=== PATIENT | male | born 1945 | race Hispanic/Latino ===

== ENCOUNTER → 2017-06-07 | Outpatient (CLI) | payer OTHER, MEDICARE ==
[~2017-06-07] MED LIST: CITA10TA7 PO; FINA5TAB41 PO; GABA-529 PO; INSU3INS3 SQ; LEVO5TAB13 PO; SACU1TAB7 PO; TERB250T51 PO; TYL3 PO; WARF4TAB72 PO
[2017-06-07 11:58] LABS: CREATININE 0.9 mg/dL (0.5-1.5)
== END | disposition home or self-care (01) ==
LOC: LAB 05-31 08:12
PROVIDERS: ATTEND Internal Medicine Cardiovascular Disease
DX: I73.9 Peripheral vascular disease, unspecified (principal)
CPT/HCPCS: 36415; 82565; 84520

== ENCOUNTER → 2017-06-12 | Outpatient (CLI) | payer OTHER, MEDICARE ==
[~2017-06-12] MED LIST changes: +IOPAMIDOL-370 100 ML VIAL IV ONE; +IOPAMIDOL-370 75 ML VIAL IV ONE; +ISOVUE-370 50ML VIAL IV ONE
== END ==
LOC: RAH 09:12
PROVIDERS: ATTEND Internal Medicine Cardiovascular Disease
DX: I74.5 Embolism and thrombosis of iliac artery (principal); I70.0 Atherosclerosis of aorta
CPT/HCPCS: 75635; Q9967 ×4

== ENCOUNTER → 2018-02-22 | Outpatient (CLI) | payer OTHER, MEDICARE ==
[~2018-02-22] MED LIST changes: -IOPAMIDOL-370 100 ML VIAL IV ONE; -IOPAMIDOL-370 75 ML VIAL IV ONE; -ISOVUE-370 50ML VIAL IV ONE
== END | disposition home or self-care (01) ==
LOC: OIH 10:53
PROVIDERS: ATTEND Internal Medicine
DX: M51.36 Other intervertebral disc degeneration, lumbar region (principal); M48.061 Spinal stenosis, lumbar region without neurogenic claudication; I70.0 Atherosclerosis of aorta
CPT/HCPCS: 72131

== ENCOUNTER 2018-06-08 07:02 | Day surgery (SDC) | payer OTHER, MEDICARE ==
[2018-06-06 13:06] VITALS: BP 178/78
[2018-06-06 13:20] LABS: HEMATOCRIT 47.9 % (42-54); LYMPHOCYTES % (AUTO) 16.2 % (21.0-51.0); MEAN CORPUSCULAR HEMOGLOBIN 29.6 pg (27.0-33.0); MEAN CORPUSCULAR HGB CONC 33.3 g/dL (32.0-36.0); NEUTROPHILS % (AUTO) 72.8 % (40.0-77.0); PLATELET COUNT (AUTO) 162 K/uL (130-400); RED BLOOD CELL COUNT(AUTO) 5.39 MIL/uL (4.50-6.20); RED CELL DISTRIBUTION WIDTH 14.3 % (11.0-15.5); WHITE BLOOD COUNT (AUTO) 6.4 K/uL (4.8-10.8)
[2018-06-06 13:22] LABS: APPEARANCE,URINE Clear (CLEAR); BILIRUBIN,URINE Negative (NEGATIVE); COLOR,URINE Yellow (YELLOW); GLUCOSE, URINE (UA) >=1000 mg/dL (NEGATIVE); KETONES,URINE Negative (NEGATIVE); LEUKOCYTE ESTERASE ,URINE Negative (NEGATIVE); NITRATE,URINE Negative (NEGATIVE); OCCULT BLOOD,URINE Negative (NEGATIVE); PROTEIN,URINE Negative (NEGATIVE)
[2018-06-06 13:28] LABS: CREATININE 0.9 mg/dL (0.5-1.5); POTASSIUM 4.4 mmol/L (3.5-5.1)
[2018-06-06 13:31] LABS: INR 2.28 (0.85-1.15); PARTIAL THROMBOPLASTIN TIME 38.3 SEC (26.3-35.5); PROTHROMBIN TIME 23.6 SEC (9.6-11.6)
[2018-06-06 13:36] LABS: BACTERIA,URINE Rare /HPF (None Seen); RBC,URINE None Seen /HPF (0-1); SQUAMOUS EPITHELIAL CELL,UR Rare /HPF (0-2); WBC,URINE 0-1 /HPF (0-1)
--- NOTE | 2018-06-07 10:25 | NUR ---
ABNORMAL LABS NOTIFIED BRIANNE WELDON PT'S PT 23.6, INR 2.28, PTT 38.3. LAST DOSE COUMADIN 06/05/18. ORDERS TO REDRAW PT/PTT UPON ARRIVAL DOS.
[~2018-06-08] VITALS: Ht 180.3 cm; Wt 86.2 kg
[2018-06-08] VITALS (19 sets, daily range): BP systolic 144–174; BP diastolic 50–98
[~2018-06-08 07:02] MED LIST changes: +ASPI-555 PO; +ATOR40TA71 PO; -CITA10TA7 PO; -FINA5TAB41 PO; -LEVO5TAB13 PO; +NEBI5TAB8 PO; -TERB250T51 PO; -TYL3 PO; +WARF-57 PO
[2018-06-08 07:50] LABS: INR 1.37 (0.85-1.15); PARTIAL THROMBOPLASTIN TIME 32.1 SEC (26.3-35.5); PROTHROMBIN TIME 14.3 SEC (9.6-11.6)
[2018-06-08] MEDS ORDERED: SODIUM CHLORIDE 0.9% 1000ML 1,000 ML IV ONE (09:36)
[2018-06-08] MEDS ORDERED: NITROGLYCERIN 5 MG/ML 10 ML VIAL IV ONE (10:45)
[2018-06-08] MEDS ORDERED: LIDOCAINE HCL 2% 20ML ONE (10:45)
[2018-06-08] MEDS ORDERED: HEPARIN SODIUM 1000UNIT/ML 10ML VIAL ONE (10:45)
[2018-06-08] MEDS ORDERED: IODIXANOL 320 MG/ML 100 ML VIAL ONE (10:48)
[2018-06-08] MEDS ORDERED: MIDAZOLAM HCL 1 MG/ML 2ML VIAL ONE (11:46)
[2018-06-08] MEDS ORDERED: FENTANYL CITRATE PF 50 MCG/1 ML 2ML VIAL ONE (11:47)
[2018-06-08] MEDS ORDERED: SODIUM CHLORIDE 0.9% 1000ML 1,000 ML IV SCH (12:46)
[2018-06-08] MEDS ORDERED: ASPIRIN 81MG TAB.CHEW ONE (12:51)
[2018-06-08] MEDS ORDERED: CLOPIDOGREL BISULFATE 300 MG TAB ONE (12:51)
[2018-06-08] MEDS ORDERED: NITROGLYCERIN 0.4 MG SL TAB SL PRN (13:00)
[2018-06-08] MEDS ORDERED: METOPROLOL TARTRATE 1 MG/ML 5ML VIAL IV PRN (13:00)
[2018-06-08] MEDS ORDERED: GLUCAGON 1MG KIT 1 MG ML IM PRN (13:00)
[2018-06-08] MEDS ORDERED: DEXTROSE 50%-WATER 50 ML DISP.SYRIN IV PRN (13:00)
[2018-06-08] MEDS ORDERED: HYDRALAZINE HCL 20 MG/ML VIAL IV PRN (13:00)
--- NOTE | 2018-06-08 15:30 | NUR ---
REPORTED TO BRIANNE BUSTOS THAT PATIENT NOT COOPERATING POST CATH PROCEDURE. PATIENT HAS A 6FR LINE TO THE LEFT GROIN. PATIENT STATES HE WANTS TO GET OUT OF BED AND GO TO THE RESTROOM. I INFORMED HIM THAT HE IS NOT ABLE TO GET UP YET. HE TRIED TO GET UP, BENDING LEFT KNEE WITH LINE IN PLACE, NO BLEEDING OR HEMATOMA TO SITE. I EXPLAINED THE COMPLICATIONS TO HIS ACTIONS. HE CALMED DOWN AND HE STARTED TO COOPERATE. I PROCEEDED WITH THE LINE PULL. NO COMPLICATIONS, NO HEMATOMA, NO BLEEDING, PULSES PRESENT.
[2018-06-08] MEDS ORDERED: ATROPINE SULFATE 0.1 MG/ML 10 ML SYG IVP ONE (15:37)
--- NOTE | 2018-06-08 16:15 | NUR ---
REPORT REPORT GIVEN TO ELIZABETH CAMPBELL. NO CONCERNS VOICED AT REPORT, PATIENT STABLE. NO BLEEDING, NO HEMATOMA TO LEFT GROIN.
[2018-06-08] MEDS ORDERED: INSULIN HUMULIN R 100 UNIT/ML 3ML SQ SCH (16:30)
[2018-06-09] MEDS ORDERED: CLOPIDOGREL BISULFATE 75 MG TAB PO SCH (09:00)
== END 2018-06-08 18:34 | disposition home or self-care (01) ==
LOC: DAH 07:02
PROVIDERS: ATTEND Internal Medicine Cardiovascular Disease
DX: I70.213 Atherosclerosis of native arteries of extremities with intermittent claudication, bilateral legs (principal); I82.90 Acute embolism and thrombosis of unspecified vein; I26.99 Other pulmonary embolism without acute cor pulmonale; M19.90 Unspecified osteoarthritis, unspecified site; Z98.890 Other specified postprocedural states; Z95.5 Presence of coronary angioplasty implant and graft; Z79.899 Other long term (current) drug therapy; Z79.01 Long term (current) use of anticoagulants; I25.10 Atherosclerotic heart disease of native coronary artery without angina pectoris; I48.2 Chronic atrial fibrillation; Z95.0 Presence of cardiac pacemaker; I42.9 Cardiomyopathy, unspecified; Z88.8 Allergy status to other drugs, medicaments and biological substances; Z82.49 Family history of ischemic heart disease and other diseases of the circulatory system; E11.51 Type 2 diabetes mellitus with diabetic peripheral angiopathy without gangrene; E78.5 Hyperlipidemia, unspecified; I10 Essential (primary) hypertension; G89.4 Chronic pain syndrome; E11.42 Type 2 diabetes mellitus with diabetic polyneuropathy; I71.4 Abdominal aortic aneurysm, without rupture
CPT/HCPCS: 36415 ×2; 37221; 71045; 75630; 80048; 81001; 82948 ×3; 85025; 85610 ×2; 85730 ×2; 93005; A4606; C1725 ×2; C1769 ×2; C1874; C1894 ×3; J0360; J0461; J1644 ×2; J2250; J3010; J3490 ×2; J7030; Q9967; 99156; 99157

== ENCOUNTER 2018-07-11 08:09 | Day surgery (SDC) | payer OTHER, MEDICARE ==
[2018-07-09 15:34] VITALS: BP 177/75
[2018-07-09 15:48] LABS: BASOPHILS % (AUTO) 1.1 % (0.0-5.0); EOSINOPHILS % (AUTO) 3.9 % (0.0-8.0); HEMATOCRIT 47.1 % (42-54); LYMPHOCYTES % (AUTO) 15.4 % (21.0-51.0); MEAN CORPUSCULAR HEMOGLOBIN 29.3 pg (27.0-33.0); MEAN CORPUSCULAR HGB CONC 32.6 g/dL (32.0-36.0); MEAN CORPUSCULAR VOLUME 89.7 fL (79-99); NEUTROPHILS % (AUTO) 73.6 % (40.0-77.0); PLATELET COUNT (AUTO) 152 K/uL (130-400); RED BLOOD CELL COUNT(AUTO) 5.25 MIL/uL (4.50-6.20); RED CELL DISTRIBUTION WIDTH 14.7 % (11.0-15.5); WHITE BLOOD COUNT (AUTO) 6.9 K/uL (4.8-10.8)
[2018-07-09 15:50] LABS: APPEARANCE,URINE Clear (CLEAR); BILIRUBIN,URINE Negative (NEGATIVE); COLOR,URINE Yellow (YELLOW); GLUCOSE, URINE (UA) >=1000 mg/dL (NEGATIVE); KETONES,URINE Negative (NEGATIVE); LEUKOCYTE ESTERASE ,URINE Negative (NEGATIVE); NITRATE,URINE Negative (NEGATIVE); OCCULT BLOOD,URINE Negative (NEGATIVE); PROTEIN,URINE Negative (NEGATIVE)
[2018-07-09 16:00] VITALS: BP 145/71
[2018-07-09 16:01] LABS: CREATININE 1.3 mg/dL (0.5-1.5); POTASSIUM 4.2 mmol/L (3.5-5.1)
[2018-07-09 16:04] LABS: INR 1.41 (0.85-1.15); PARTIAL THROMBOPLASTIN TIME 31.6 SEC (26.3-35.5); PROTHROMBIN TIME 14.7 SEC (9.6-11.6)
[2018-07-09 16:10] LABS: BACTERIA,URINE Rare /HPF (None Seen); RBC,URINE None Seen /HPF (0-1); SQUAMOUS EPITHELIAL CELL,UR None Seen /HPF (0-2); WBC,URINE 0-1 /HPF (0-1)
[2018-07-11] VITALS (10 sets, daily range): BP systolic 121–158; BP diastolic 54–90
[~2018-07-11] VITALS: Ht 180.3 cm; Wt 83.0 kg
[~2018-07-11 08:09] MED LIST changes: -ASPI-555 PO; +CLOP75TA14 PO
--- NOTE | 2018-07-11 08:33 | NUR ---
ABNORMAL LABS NOTIFIED BRIANNE HALL OF PT'S LABS- CREAT 1.3, INR 1.41, URINE GLUCOSE >1000. NO FURTHER ORDERS GIVEN.
--- NOTE | 2018-07-11 09:03 | NUR ---
NOTE PT STATED HE ACCIDENTALLY TOOK WARFARIN 5MG ON Monday07/09/18 AFTER PRE OP/PRE OP LABS WERE DRAWN. NOTIFIED BRIANNE HALL. PER AMIRAH, DRAW PT/INR NOW.
[2018-07-11] MEDS ORDERED: SODIUM CHLORIDE 0.9% 1000ML 1,000 ML IV ONE ×3 (09:29→11:06)
[2018-07-11 09:33] LABS: INR 1.41 (0.85-1.15); PARTIAL THROMBOPLASTIN TIME 31.9 SEC (26.3-35.5); PROTHROMBIN TIME 14.7 SEC (9.6-11.6)
[2018-07-11] MEDS ORDERED: WARF4TAB72 PO (09:35)
[2018-07-11] MEDS ORDERED: WARF-57 PO (09:35)
--- NOTE | 2018-07-11 10:23 | NUR ---
NOTE NOTIFIED BRIANNE SILVA OF PT'S REPEAT LABS TODAY- PT 14.7, INR 1.41. NO FURTHER ORDERS, WILL PROCEED WITH PLANNED PROCEDURE. ALSO INFORMED Mike MACARIO THAT PER PT, HE IS NOT SURE IF SOMEBODY CAN STAY WITH HIM OVERNIGHT, PROVIDER STAYS UNTIL 830 PM, HE WILL TRY TO MAKE ARRANGEMENTS.
[2018-07-11] MEDS ORDERED: SODIUM CHLORIDE 0.9% 500ML 500 ML IV SCH (10:30)
[2018-07-11] MEDS ORDERED: HEPARIN SODIUM 1000UNIT/ML 10ML VIAL ONE (12:44)
[2018-07-11] MEDS ORDERED: LIDOCAINE HCL 2% 20ML ONE (12:44)
[2018-07-11] MEDS ORDERED: IODIXANOL 320 MG/ML 100 ML VIAL ONE (12:44)
[2018-07-11] MEDS ORDERED: NITROGLYCERIN 5 MG/ML 10 ML VIAL IV ONE (12:44)
--- NOTE | 2018-07-11 12:45 | NUR ---
TO GEOTHERMAL POWERPLANT MECHANIC PT TRANSFERRED TO CATH VIA BED BY ELIZABETH LANDIN AND ELIZABETH PIERRE.
[2018-07-11] MEDS ORDERED: FENTANYL CITRATE PF 50 MCG/1 ML 2ML VIAL ONE (12:59)
[2018-07-11] MEDS ORDERED: MIDAZOLAM HCL 1 MG/ML 2ML VIAL ONE (12:59)
[2018-07-11] MEDS ORDERED: CLOPIDOGREL BISULFATE 300 MG TAB ONE (13:35)
[2018-07-11] MEDS ORDERED: SODIUM CHLORIDE 0.9% 1000ML 1,000 ML IV SCH (13:39)
[2018-07-11] MEDS ORDERED: DEXTROSE 50%-WATER 50 ML DISP.SYRIN IV PRN (13:45)
[2018-07-11] MEDS ORDERED: GLUCAGON 1MG KIT 1 MG ML IM PRN (13:45)
[2018-07-11] MEDS ORDERED: NITROGLYCERIN 0.4 MG SL TAB SL PRN (13:45)
[2018-07-11] MEDS ORDERED: GABAPENTIN 100 MG CAPSULE PO SCH (14:00)
--- NOTE | 2018-07-11 14:09 | NUR ---
RECEIVE PT RECEIVED FROM NETWORK TECHNOLOGY INSTRUCTOR VIA BED AWAKE ALERT ORIENTED X3. PT STABLE, NOT IN ANY APPARENT DISTRESS. CATH SITE TO LEFT POPLITEAL SOFT, GAUZE/OPSITE DRESSING DRY AND INTACT, NO OOZING NO HEMATOMA NOTED. PT INSTRUCTED TO KEEP LEFT LEG STRAIGHT AND TO REMAIN IN BED UNTIL BEDREST IS UP IN 3 HOURS, VERBALIZED UNDERSTANDING. POSITIONED SEMI SITTING ON BED. CALL [facility] WITHIN REACH.
--- NOTE | 2018-07-11 15:40 | NUR ---
NOTE RECEIVED REPORT FROM BRIAN GARCIA RN; PT WAS STABLE. NO CHANGES WITH CATH SITE. NO COMPLAINTS MADE. RECEIVED PT ON BED, NOT IN ANY APPARENT DISTRESS. CATH SITE TO LEFT POPLITEAL AREA REMAINS SOFT, DRESSING DRY AND INTACT, NO OOZING NO HEMATOMA NOTED. Addendum: 07/11/18 at 1835 by ALFONSO TOVAR RN RN ADDENDUM: TOLERATED DIET WELL.
--- NOTE | 2018-07-11 16:18 | NUR ---
LATE ENTRY: REPORT GIVEN TO BRIAN RN 1430, BRIAN TOOK OVER PT CARE AT THIS TIME.
[2018-07-11] MEDS ORDERED: INSULIN HUMULIN R 100 UNIT/ML 3ML SQ SCH (16:30)
--- NOTE | 2018-07-11 17:06 | NUR ---
CLARIFICATION CLARIFIED WITH BRIANNE HALL WHEN TO RESUME COUMADIN. PER AMIRAH, RESUME COUMADIN TODAY.
--- NOTE | 2018-07-11 17:35 | NUR ---
VOID PT ASSISTED TO BATHROOM, AMBULATED WITHOUT ANY PROBLEMS. VOIDED X1.
--- NOTE | 2018-07-11 18:30 | NUR ---
DISCHARGE PT DISCHARGED VIA WHEELCHAIR WITH DAUGHTER. PT STATES HE FEELS BETTER. CATH SITE REMAINS SOFT, DRESSING DRY AND INTACT, NO OOZING NO HEMATOMA NOTED. DISCHARGE INSTRUCTIONS GIVEN TO DAUGHTER, ALSO DEMONSTRATED TO DAUGHTER ON HOW TO MONITOR SITE FOR BLEEDING/HEMATOMA, TO APPLY DIRECT PRESSURE AND CALL 911. VERBALIZED UNDERSTANDING. INSTRUCTED PT/DAUGHTER, PT MAY RESUME COUMADIN TODAY, AND RESUME [facility]VIX TOMORROW. VERBALIZED UNDERSTANDING.
[2018-07-11] MEDS ORDERED: ATORVASTATIN CALCIUM 40 MG TABLET PO SCH (21:00)
[2018-07-12] MEDS ORDERED: INSULIN GLARGINE 100 UNITS/ML 10 ML VIAL SQ SCH (08:00)
[2018-07-12] MEDS ORDERED: CLOPIDOGREL BISULFATE 75 MG TAB PO SCH (09:00)
== END 2018-07-11 18:00 | disposition home or self-care (01) ==
LOC: DAH 08:09
PROVIDERS: ATTEND Internal Medicine Cardiovascular Disease
DX: I70.212 Atherosclerosis of native arteries of extremities with intermittent claudication, left leg (principal); E11.51 Type 2 diabetes mellitus with diabetic peripheral angiopathy without gangrene; I70.218 Atherosclerosis of native arteries of extremities with intermittent claudication, other extremity; Z79.01 Long term (current) use of anticoagulants; Z79.899 Other long term (current) drug therapy; Z98.890 Other specified postprocedural states; I48.2 Chronic atrial fibrillation; I42.9 Cardiomyopathy, unspecified; E78.5 Hyperlipidemia, unspecified; I10 Essential (primary) hypertension; G89.4 Chronic pain syndrome; Z82.49 Family history of ischemic heart disease and other diseases of the circulatory system; Z88.8 Allergy status to other drugs, medicaments and biological substances; I87.2 Venous insufficiency (chronic) (peripheral); Z95.810 Presence of automatic (implantable) cardiac defibrillator
CPT/HCPCS: 36415 ×2; 37226; 75710; 80048; 81001; 82948 ×2; 85025; 85610 ×2; 85730 ×2; 93005; A4606; C1725; C1760; C1769; C1874; C1894 ×2; J1644 ×2; J2250; J3010; J3490 ×2; J7030 ×3; Q9967; 99156; 99157

== ENCOUNTER → 2018-09-10 | Outpatient (CLI) | payer OTHER, MEDICARE | END | disposition home or self-care (01) | LOC: SHCH 09:31 | PROVIDERS: ATTEND Internal Medicine Cardiovascular Disease | DX: I35.8 Other nonrheumatic aortic valve disorders (principal); I11.9 Hypertensive heart disease without heart failure; I73.9 Peripheral vascular disease, unspecified; Z95.0 Presence of cardiac pacemaker | CPT/HCPCS: 93306; 93925 ==

== ENCOUNTER 2018-10-05 13:11 | Emergency (ER) | payer OTHER, MEDICARE ==
[2018-10-05] MEDS ORDERED: DEXAMETHASONE SOD PHOSPHATE 10MG/ML 1ML VIAL ONE (14:07)
[2018-10-05] MEDS ORDERED: KETOROLAC TROMETHAMINE 30MG/ML ONE (14:07)
[2018-10-05] MEDS ORDERED: IPRATROPIUM/ALBUTEROL SULFATE 3 ML SOLUTION IH ONE (14:10)
[2018-10-05 14:15] LABS: RAPID GROUP A STREP NEGATIVE (NEGATIVE)
== END 2018-10-05 14:51 | disposition home or self-care (01) ==
LOC: EDH 13:11
DX: J20.9 Acute bronchitis, unspecified (principal); E11.9 Type 2 diabetes mellitus without complications; Z88.8 Allergy status to other drugs, medicaments and biological substances
CPT/HCPCS: 87804 ×2; 87880; 94640; 96372 ×2; 99284; J1100; J1885

== ENCOUNTER → 2018-10-05 | Outpatient (CLI) | payer OTHER, MEDICARE | END | disposition home or self-care (01) | LOC: RAH 12:32 | PROVIDERS: ATTEND Internal Medicine | DX: Z13.6 Encounter for screening for cardiovascular disorders (principal) | CPT/HCPCS: 71045 ==

== ENCOUNTER → 2018-11-06 | Outpatient (CLI) | payer OTHER, MEDICARE | END | disposition home or self-care (01) | LOC: RAH 12:07 | PROVIDERS: ATTEND Internal Medicine | DX: J44.9 Chronic obstructive pulmonary disease, unspecified (principal); F17.200 Nicotine dependence, unspecified, uncomplicated | CPT/HCPCS: 36415; 82565; 84520 ==

== ENCOUNTER → 2018-12-12 | Outpatient (CLI) | payer OTHER, MEDICARE | END | disposition home or self-care (01) | LOC: SHCH 13:00 | PROVIDERS: ATTEND Internal Medicine Cardiovascular Disease | DX: I87.2 Venous insufficiency (chronic) (peripheral) (principal) | CPT/HCPCS: 93925 ==

== ENCOUNTER 2019-02-08 13:27 | Inpatient (IN) | payer OTHER, MEDICARE ==
[~2019-02-08] VITALS: Ht 180.3 cm; Wt 79.9 kg
[2019-02-08 14:21] LABS: BASOPHILS % (AUTO) 0.7 % (0.0-5.0); EOSINOPHILS % (AUTO) 2.1 % (0.0-8.0); HEMATOCRIT 43.9 % (42-54); LYMPHOCYTES % (AUTO) 10.8 % (21.0-51.0); MEAN CORPUSCULAR HEMOGLOBIN 30.9 pg (27.0-33.0); MEAN CORPUSCULAR HGB CONC 34.5 g/dL (32.0-36.0); MEAN CORPUSCULAR VOLUME 89.6 fL (79-99); MONOCYTES % (AUTO) 6.1 % (3.0-13.0); NEUTROPHILS % (AUTO) 80.3 % (40.0-77.0); PLATELET COUNT (AUTO) 259 K/uL (130-400); RED BLOOD CELL COUNT(AUTO) 4.91 MIL/uL (4.50-6.20); RED CELL DISTRIBUTION WIDTH 14.3 % (11.0-15.5); WHITE BLOOD COUNT (AUTO) 10.2 K/uL (4.8-10.8)
[2019-02-08 14:31] LABS: CREATININE 1.2 mg/dL (0.5-1.5); POTASSIUM 5.3 mmol/L (3.5-5.1)
[2019-02-08 14:36] LABS: ALBUMIN 3.4 g/dL (3.5-5.0); BILIRUBIN,DIRECT 0.1 mg/dL (0.0-0.3); BILIRUBIN,TOTAL 0.3 mg/dL (0.2-1.0); TOTAL PROTEIN, SERUM 6.9 g/dL (6.0-8.3)
[2019-02-08] MEDS ORDERED: ACETAMINOPHEN-CODEINE 300/30MG TAB PO PRN ×2 (17:15)
[2019-02-08] MEDS ORDERED: ACETAMINOPHEN 325 MG TAB PO PRN ×2 (17:15)
[2019-02-08] MEDS ORDERED: ONDANSETRON HCL 4 MG/2 ML VIAL IV PRN (17:15)
[2019-02-08] MEDS ORDERED: MORPHINE SULFATE 4 MG/1ML SYG IV PRN (17:15)
[2019-02-08] MEDS ORDERED: HYDRALAZINE HCL 20 MG/ML VIAL IV PRN (17:15)
[2019-02-08] MEDS ORDERED: VANCOMYCIN 1GM+NS 250ML 250 ML IV SCH (17:15)
[2019-02-08] MEDS ORDERED: VANCOMYCIN PROTOCOL PER PHARMACY IV PRN (17:15)
[2019-02-08] MEDS ORDERED: COMPOUND IV REFRIGERATED 1 EACH IVSOLN MISC PRN (18:00)
[2019-02-08] MEDS ORDERED: VANCOMYCIN PROTOCOL PER PHARMACY IV SCH (18:00)
[2019-02-08] MEDS ORDERED: ACETAMINOPHEN-CODEINE 300/30MG TAB ONE (18:42)
[2019-02-08] MEDS ORDERED: SODIUM CHLORIDE 0.9% 1000ML 1,000 ML IV ONE (18:42)
[2019-02-08] MEDS ORDERED: MEROPENEM 500 MG VIAL ONE (19:21)
[2019-02-08] MEDS ORDERED: SODIUM CHLORIDE 0.9% 50 ML IV ONE (19:21)
[2019-02-08 19:38] LABS: HEMOGLOBIN A1C 9.5 % (4.0-6.0)
[2019-02-08 20:01] LABS: PARTIAL THROMBOPLASTIN TIME 46.7 SEC (26.3-35.5)
[2019-02-08 20:06] LABS: PROTHROMBIN TIME 57.5 SEC (9.6-11.6)
[2019-02-08 20:07] LABS: INR 5.86 (0.85-1.15)
[2019-02-08 21:00] VITALS: BP 151/74
--- NOTE | 2019-02-08 21:30 | NUR ---
Nursing Note Pt informed about SCD's, to be on bedrest and informed about medication. Pt is refusing to be on bedrest, to use a urinal or bedside commode.
[2019-02-08] MEDS: SODIUM CHLORIDE 0.9% 1000ML 1,000 ML IV SCH (21:38)
[2019-02-08] MEDS: VANCOMYCIN 1.25 GM in SODIUM CHLORIDE 0.9% 250 ML IV SCH ×2 (21:38→22:00)
[2019-02-08] MEDS: MEROPENEM 500 MG VIAL IV SCH (21:38)
[2019-02-08] MEDS: FAMOTIDINE/PF 20 MG/2 ML VIAL IV SCH (21:38)
--- NOTE | 2019-02-08 22:00 | NUR ---
Nursing Note Spoke with JAILENE Parker and informed him of the pt's Pt and INR. Orders were given to hold blood thinners at this time, put pt on SCD's and telemetry and order more labs in the AM to recheck.
[2019-02-08] MEDS: INSULIN GLARGINE 100 UNITS/ML 10 ML VIAL SQ SCH (22:01)
--- NOTE | 2019-02-08 22:16 | NUR ---
Nursing Note Dr. Jones stated he would see the pt tomorrow.
[2019-02-08 23:38] VITALS: BP 151/72
[2019-02-09] MEDS: MEROPENEM 500 MG VIAL IV SCH ×3 (00:58→17:15)
[2019-02-09] MEDS ORDERED: PHARMACY COMMUNICATION MISC SCH (02:15)
[2019-02-09 04:00] VITALS: BP 150/80
[2019-02-09] MEDS: SODIUM CHLORIDE 0.9% 1000ML 1,000 ML IV SCH ×3 (05:27→23:40)
[2019-02-09 05:45] LABS: PARTIAL THROMBOPLASTIN TIME 46.7 SEC (26.3-35.5)
[2019-02-09] MEDS: INSULIN LISPRO 100 UNIT/ML 3ML SQ SCH ×3 (05:46→18:18)
[2019-02-09 05:47] LABS: CHOLESTEROL 97 mg/dL (<200); HDL CHOLESTEROL 26 mg/dL (29-71); LDL DIRECT 60 mg/dL (0-99); TRIGLYCERIDES 74 mg/dL (30-200)
[2019-02-09 06:01] LABS: INR 4.66 (0.85-1.15); PROTHROMBIN TIME 46.1 SEC (9.6-11.6)
--- NOTE | 2019-02-09 06:21 | NUR ---
Nursing Note Paged about PT/INR results, waiting for call back.
[2019-02-09 08:00] VITALS: BP 154/82
--- NOTE | 2019-02-09 08:38 | NUR ---
PAGED CARDIOLOGY CONSULT PAGED CHINESE TEACHER STRING LASTER, DR. Caesar TOVAR REGARDING CONSULT.
[2019-02-09] MEDS: ENOXAPARIN SODIUM 40 MG/0.4 ML SYRINGE SQ SCH (09:00)
[2019-02-09 11:00] VITALS: BP 139/70
[2019-02-09] MEDS: VANCOMYCIN 750MG + NS 250 ML IV SCH ×4 (11:16→20:04)
[2019-02-09] MEDS: FAMOTIDINE/PF 20 MG/2 ML VIAL IV SCH ×2 (11:35→20:02)
[2019-02-09] MEDS ORDERED: DIPH,PERTUSS(ACELL),TET VAC/PF 0.5 ML VIAL IM SCH (12:15)
[2019-02-09 12:35] LABS: EOSINOPHILS % (AUTO) 5.5 % (0.0-8.0); HEMATOCRIT 45.8 % (42-54); LYMPHOCYTES % (AUTO) 19.1 % (21.0-51.0); MEAN CORPUSCULAR HGB CONC 33.4 g/dL (32.0-36.0); MEAN CORPUSCULAR VOLUME 89.7 fL (79-99); MONOCYTES % (AUTO) 7.9 % (3.0-13.0); NEUTROPHILS % (AUTO) 66.5 % (40.0-77.0); NUCLEATED RED BLOOD CELLS 0.1 % (0.0-0.19); PLATELET COUNT (AUTO) 222 K/uL (130-400); RED CELL DISTRIBUTION WIDTH 14.1 % (11.0-15.5); WHITE BLOOD COUNT (AUTO) 7.5 K/uL (4.8-10.8)
[2019-02-09] MEDS ORDERED: TRAM50TA4 PO (12:35)
[2019-02-09] MEDS ORDERED: CLOP75TA14 PO (12:35)
[2019-02-09] MEDS ORDERED: WARF-57 PO (12:35)
[2019-02-09] MEDS ORDERED: NEBI10TA PO (12:35)
[2019-02-09] MEDS ORDERED: LEVO25TA54 PO (12:35)
[2019-02-09] MEDS ORDERED: ATOR40TA69 PO (12:35)
[2019-02-09] MEDS ORDERED: GLIP10TA9 PO (12:35)
[2019-02-09] MEDS ORDERED: SACU1TAB7 PO (12:35)
[2019-02-09] MEDS ORDERED: INSU3INS3 SQ (12:35)
[2019-02-09] MEDS: TRAMADOL HCL 50 MG TABLET PO PRN ×2 (15:09→23:47)
[2019-02-09 16:00] VITALS: BP 156/78
--- NOTE | 2019-02-09 17:04 | NUR ---
INITIAL: Met with pt this afternoon to discuss dcp. Pt mentions that he lives alone. Prior to admission was using either a rollator or crutches for ambulation. Requires assistance w ADLs. Has provider services 8a-2:30pm. Pt mentions that his provider transports him where needed. Per pt he feels safe and comfortable to return home at ar. CM to continue to follow and wait for Md recommendations. Addendum: 02/09/19 at 1706 by GISSELLE AGUAYO Amended: Links added.
[2019-02-09 20:00] VITALS: BP 151/75
--- NOTE | 2019-02-09 20:00 | NUR ---
Nursing Note Explained to pt about medications and talked to pt about the plan's the doctor talked with him about. Pt is still confused as to why he has to stay for the procedures scheduled for Monday. Pt also stated "the doctors don't know what they are doing." I talked to pt some more about his medications and why they want him to stay.
[2019-02-09] MEDS: ATORVASTATIN CALCIUM 40 MG TABLET PO SCH (20:03)
[2019-02-09] MEDS: INSULIN GLARGINE 100 UNITS/ML 10 ML VIAL SQ SCH (20:46)
[2019-02-10] VITALS (8 sets, daily range): BP systolic 139–163; BP diastolic 71–90
[2019-02-10] MEDS: MEROPENEM 500 MG VIAL IV SCH ×3 (00:25→17:35)
[2019-02-10 06:30] LABS: BASOPHILS % (AUTO) 0.8 % (0.0-5.0); EOSINOPHILS % (AUTO) 4.3 % (0.0-8.0); HEMATOCRIT 40.5 % (42-54); LYMPHOCYTES % (AUTO) 19.4 % (21.0-51.0); MEAN CORPUSCULAR HEMOGLOBIN 29.8 pg (27.0-33.0); MEAN CORPUSCULAR HGB CONC 33.5 g/dL (32.0-36.0); MEAN CORPUSCULAR VOLUME 89.2 fL (79-99); MONOCYTES % (AUTO) 8.1 % (3.0-13.0); NEUTROPHILS % (AUTO) 67.4 % (40.0-77.0); PLATELET COUNT (AUTO) 207 K/uL (130-400); RED BLOOD CELL COUNT(AUTO) 4.54 MIL/uL (4.50-6.20); RED CELL DISTRIBUTION WIDTH 13.5 % (11.0-15.5); WHITE BLOOD COUNT (AUTO) 7.6 K/uL (4.8-10.8)
[2019-02-10] MEDS: LEVOTHYROXINE 25 MCG TABLET PO SCH (06:31)
[2019-02-10 06:38] LABS: INR 2.48 (0.85-1.15); PROTHROMBIN TIME 25.1 SEC (9.6-11.6)
[2019-02-10] MEDS: INSULIN GLARGINE 100 UNITS/ML 10 ML VIAL SQ SCH ×2 (06:40→21:00)
[2019-02-10] MEDS: INSULIN LISPRO 100 UNIT/ML 3ML SQ SCH ×3 (06:40→16:06)
--- NOTE | 2019-02-10 07:20 | NUR ---
Nursing Note Informed Day Nurse Sherri JOHNSON to have pt sign consent for procedure on 02/11/19 while doctors are making their rounds because pt has lots of concerns and questions.
[2019-02-10 08:55] LABS: CREATININE 0.9 mg/dL (0.5-1.5)
[2019-02-10] MEDS: ENOXAPARIN SODIUM 40 MG/0.4 ML SYRINGE SQ SCH (09:00)
[2019-02-10] MEDS: ***HM***(Sacubitril/Valsartan (Entresto 49 mg-51 mg Tablet) 1 EACH PO SCH (09:00)
[2019-02-10] MEDS: GLIPIZIDE XL 10MG TAB PO SCH (09:16)
[2019-02-10] MEDS: VANCOMYCIN 750MG + NS 250 ML IV SCH ×4 (09:16→20:46)
[2019-02-10 09:17] LABS: POTASSIUM 3.9 mmol/L (3.5-5.1)
[2019-02-10] MEDS: FAMOTIDINE/PF 20 MG/2 ML VIAL IV SCH ×2 (09:17→20:46)
[2019-02-10] MEDS: NEBIVOLOL HCL 5 MG TABLET PO SCH (09:17)
[2019-02-10] MEDS ORDERED: REGADENOSON 0.4 MG/5 ML PF SYG IVP SCH (12:00)
--- NOTE | 2019-02-10 15:45 | NUR ---
DR. TOVAR IN TO SEE PT. ORDERS ENTERED. IF INR >THAN 1.7 DO LEXISCAN 1ST AND ABD ANGIOGRAM ON MONDAY.SEE ORDERS FOR MORE CLARIFICATION.
--- NOTE | 2019-02-10 18:30 | NUR ---
X-RAYS OF HIPS, FEMUR RT. FOOT, RT.KNEE AND ANKLE DONE NOW.
[2019-02-10] MEDS: SODIUM CHLORIDE 0.9% 1000ML 1,000 ML IV SCH (20:42)
[2019-02-10] MEDS: ATORVASTATIN CALCIUM 40 MG TABLET PO SCH (20:46)
--- NOTE | 2019-02-10 21:08 | NUR ---
Nursing Note Spoke with pt for about 40 minutes, talked to pt about each of his doctors and what they are consulted for, talked to the pt about his medications and what they are for and why he is getting them, also spoke with the pt about his plan of care for the procedures coming up the abdominal aortogram and the Lexiscan, reinforced what each procedure is for and the doctors plans if his INR is greater than 1.7 and spoke to pt about his toe necrosis. Pt stated he is still confused and he doesn't know what is going on, he also stated he doesn't know why he is getting the medications and that he thinks we are experimenting on him. Pt is refusing to wear the SCD's at this time, pt refuses bedrest and continues to get up on his own without the crutches, informed the pt to call for help. Pt is also refusing insulin for his blood sugar. At this time unable to get consent signed because pt has many questions and concerns for the doctor. Pt stated "I don't trust the doctor's down here they are all friends and know each other"
[2019-02-11] VITALS (16 sets, daily range): BP systolic 114–169; BP diastolic 47–89
[2019-02-11] MEDS: MEROPENEM 500 MG VIAL IV SCH ×3 (00:54→19:33)
[2019-02-11 04:39] LABS: BASOPHILS % (AUTO) 1.1 % (0.0-5.0); EOSINOPHILS % (AUTO) 4.8 % (0.0-8.0); HEMATOCRIT 39.2 % (42-54); LYMPHOCYTES % (AUTO) 14.6 % (21.0-51.0); MEAN CORPUSCULAR HEMOGLOBIN 30.4 pg (27.0-33.0); MEAN CORPUSCULAR HGB CONC 34.7 g/dL (32.0-36.0); MEAN CORPUSCULAR VOLUME 87.6 fL (79-99); MONOCYTES % (AUTO) 6.8 % (3.0-13.0); NEUTROPHILS % (AUTO) 72.7 % (40.0-77.0); PLATELET COUNT (AUTO) 241 K/uL (130-400); RED BLOOD CELL COUNT(AUTO) 4.48 MIL/uL (4.50-6.20); RED CELL DISTRIBUTION WIDTH 13.9 % (11.0-15.5); WHITE BLOOD COUNT (AUTO) 7.9 K/uL (4.8-10.8)
[2019-02-11] MEDS: SODIUM CHLORIDE 0.9% 1000ML 1,000 ML IV SCH ×2 (04:47→15:31)
[2019-02-11 05:00] LABS: POTASSIUM 4.1 mmol/L (3.5-5.1)
[2019-02-11] MEDS: LEVOTHYROXINE 25 MCG TABLET PO SCH (05:34)
[2019-02-11] MEDS: INSULIN LISPRO 100 UNIT/ML 3ML SQ SCH ×3 (05:34→17:00)
[2019-02-11 05:55] LABS: INR 1.61 (0.85-1.15); PROTHROMBIN TIME 16.6 SEC (9.6-11.6)
[2019-02-11] MEDS: INSULIN GLARGINE 100 UNITS/ML 10 ML VIAL SQ SCH (06:23)
[2019-02-11] MEDS: GLIPIZIDE XL 10MG TAB PO SCH (08:00)
[2019-02-11] MEDS: ENOXAPARIN SODIUM 40 MG/0.4 ML SYRINGE SQ SCH (09:00)
--- NOTE | 2019-02-11 10:00 | NUR ---
CONSENT RECEIVED PT EDUCATED ON PROCEDURE (ANGIOGRAM) BEING DONE TODAY 02/11. PT VERBALIZED UNDERSTANDING AND WAS ABLE TO DESCRIBE PROCEDURE VIA RETURN DEMONSTRATION. CONSENT SIGNED AND IN CHART READY FOR PROCEDURE
[2019-02-11] MEDS: NEBIVOLOL HCL 5 MG TABLET PO SCH (10:53)
[2019-02-11] MEDS: FAMOTIDINE/PF 20 MG/2 ML VIAL IV SCH ×2 (10:54→21:27)
[2019-02-11] MEDS: ***HM***(Sacubitril/Valsartan (Entresto 49 mg-51 mg Tablet) 1 EACH PO SCH (10:55)
[2019-02-11] MEDS: VANCOMYCIN 750MG + NS 250 ML IV SCH ×6 (10:55→21:28)
--- NOTE | 2019-02-11 13:55 | NUR ---
[facility] consult Patient has already been evaluated by Dr. Bryant and wound care orders are in place. No further [facility] recommendations required at this time.
--- NOTE | 2019-02-11 14:57 | NUR ---
CM Note: pt declined placement CM met with pt as per request. Discussed possible short term placement rehab. At this time pt declined. Prefers to go back home once stable, stated provider or his son will come pick him up once ready to DC. Primary nurse aware. CM to cont to follow up.
[2019-02-11] MEDS ORDERED: IODIXANOL 320 MG/ML 100 ML VIAL ONE (15:45)
[2019-02-11] MEDS ORDERED: LIDOCAINE HCL 1% 20 ML VIAL ONE (15:45)
[2019-02-11] MEDS ORDERED: HEPARIN SODIUM 1000UNIT/ML 10ML VIAL ONE (15:45)
[2019-02-11] MEDS ORDERED: NITROGLYCERIN 5 MG/ML 10 ML VIAL IV ONE (15:45)
[2019-02-11] MEDS ORDERED: MIDAZOLAM HCL 1 MG/ML 2ML VIAL ONE (15:46)
[2019-02-11] MEDS ORDERED: FENTANYL CITRATE PF 50 MCG/1 ML 2ML VIAL ONE (15:46)
[2019-02-11] MEDS ORDERED: HYDRALAZINE HCL 20 MG/ML VIAL ONE (16:44)
[2019-02-11] MEDS: ATORVASTATIN CALCIUM 40 MG TABLET PO SCH (21:28)
[2019-02-12] VITALS (7 sets, daily range): BP systolic 135–155; BP diastolic 66–84
[2019-02-12] MEDS: SODIUM CHLORIDE 0.9% 1000ML 1,000 ML IV SCH ×2 (00:26→12:00)
[2019-02-12] MEDS: MEROPENEM 500 MG VIAL IV SCH ×3 (01:27→16:40)
[2019-02-12 05:00] LABS: HEMATOCRIT 40.6 % (42-54); MEAN CORPUSCULAR HEMOGLOBIN 30.1 pg (27.0-33.0); MEAN CORPUSCULAR HGB CONC 33.8 g/dL (32.0-36.0); MEAN CORPUSCULAR VOLUME 89.2 fL (79-99); NUCLEATED RED BLOOD CELLS 0.1 % (0.0-0.19); PLATELET COUNT (AUTO) 227 K/uL (130-400); RED BLOOD CELL COUNT(AUTO) 4.55 MIL/uL (4.50-6.20); RED CELL DISTRIBUTION WIDTH 13.9 % (11.0-15.5); WHITE BLOOD COUNT (AUTO) 8.3 K/uL (4.8-10.8)
[2019-02-12 05:13] LABS: POTASSIUM 3.8 mmol/L (3.5-5.1)
[2019-02-12] MEDS: LEVOTHYROXINE 25 MCG TABLET PO SCH (05:35)
[2019-02-12] MEDS: VANCOMYCIN 750MG + NS 250 ML IV SCH ×5 (05:35→21:50)
[2019-02-12] MEDS: INSULIN GLARGINE 100 UNITS/ML 10 ML VIAL SQ SCH (07:30)
[2019-02-12] MEDS: INSULIN LISPRO 100 UNIT/ML 3ML SQ SCH ×3 (07:30→16:44)
[2019-02-12] MEDS ORDERED: REGADENOSON 0.4 MG/5 ML PF SYG IVP SCH (08:15)
[2019-02-12] MEDS: ***HM***(Sacubitril/Valsartan (Entresto 49 mg-51 mg Tablet) 1 EACH PO SCH (09:00)
[2019-02-12] MEDS: ASPIRIN 81MG TAB.CHEW PO SCH (11:46)
[2019-02-12] MEDS: GLIPIZIDE XL 10MG TAB PO SCH (11:47)
[2019-02-12] MEDS: FAMOTIDINE/PF 20 MG/2 ML VIAL IV SCH ×2 (11:47→21:50)
[2019-02-12] MEDS: NEBIVOLOL HCL 5 MG TABLET PO SCH (11:49)
[2019-02-12] MEDS: ENOXAPARIN SODIUM 40 MG/0.4 ML SYRINGE SQ SCH (12:17)
--- NOTE | 2019-02-12 16:06 | NUR ---
DRESSING CHANGED TO RIGHT FOOT WITH BETADINE CAST. WRAPPED WITH 4X4 AND KERLIX. SECURED WITH TAPE. PATIENT TOLERATED PROCEDURE WELL.
[2019-02-12] MEDS: TRAMADOL HCL 50 MG TABLET PO PRN (16:40)
[2019-02-12] MEDS: ATORVASTATIN CALCIUM 40 MG TABLET PO SCH (21:50)
[2019-02-13] VITALS (7 sets, daily range): BP systolic 133–154; BP diastolic 63–88
[2019-02-13] MEDS: MEROPENEM 500 MG VIAL IV SCH ×3 (02:02→17:44)
[2019-02-13] MEDS: SODIUM CHLORIDE 0.9% 1000ML 1,000 ML IV SCH ×2 (02:04→21:34)
[2019-02-13] MEDS: TRAMADOL HCL 50 MG TABLET PO PRN ×2 (02:27→10:37)
[2019-02-13] MEDS: VANCOMYCIN 750MG + NS 250 ML IV SCH ×2 (05:18→14:47)
[2019-02-13] MEDS: LEVOTHYROXINE 25 MCG TABLET PO SCH (05:19)
[2019-02-13] MEDS: INSULIN LISPRO 100 UNIT/ML 3ML SQ SCH ×3 (07:30→17:49)
[2019-02-13 08:59] LABS: INR 1.22 (0.85-1.15); PARTIAL THROMBOPLASTIN TIME 30.3 SEC (26.3-35.5); PROTHROMBIN TIME 12.7 SEC (9.6-11.6)
[2019-02-13] MEDS: ***HM***(Sacubitril/Valsartan (Entresto 49 mg-51 mg Tablet) 1 EACH PO SCH (09:00)
[2019-02-13] MEDS: FAMOTIDINE/PF 20 MG/2 ML VIAL IV SCH ×2 (10:36→21:34)
[2019-02-13] MEDS: NEBIVOLOL HCL 5 MG TABLET PO SCH (10:36)
[2019-02-13] MEDS: ENOXAPARIN SODIUM 40 MG/0.4 ML SYRINGE SQ SCH (10:36)
[2019-02-13] MEDS: ASPIRIN 81MG TAB.CHEW PO SCH (10:37)
[2019-02-13] MEDS: GLIPIZIDE XL 10MG TAB PO SCH (11:14)
[2019-02-13] MEDS: INSULIN GLARGINE 100 UNITS/ML 10 ML VIAL SQ SCH (11:16)
[2019-02-13] MEDS: ATORVASTATIN CALCIUM 40 MG TABLET PO SCH (21:34)
[2019-02-14] VITALS (12 sets, daily range): BP systolic 133–177; BP diastolic 61–96
[2019-02-14] MEDS: MEROPENEM 500 MG VIAL IV SCH ×3 (00:46→17:26)
[2019-02-14 06:00] LABS: EOSINOPHILS % (AUTO) 5.1 % (0.0-8.0); HEMATOCRIT 41.4 % (42-54); LYMPHOCYTES % (AUTO) 14.1 % (21.0-51.0); MEAN CORPUSCULAR HEMOGLOBIN 30.1 pg (27.0-33.0); MEAN CORPUSCULAR HGB CONC 33.8 g/dL (32.0-36.0); MEAN CORPUSCULAR VOLUME 88.9 fL (79-99); MONOCYTES % (AUTO) 7.6 % (3.0-13.0); NEUTROPHILS % (AUTO) 72.2 % (40.0-77.0); PLATELET COUNT (AUTO) 221 K/uL (130-400); RED BLOOD CELL COUNT(AUTO) 4.65 MIL/uL (4.50-6.20); RED CELL DISTRIBUTION WIDTH 13.8 % (11.0-15.5); WHITE BLOOD COUNT (AUTO) 7.9 K/uL (4.8-10.8)
[2019-02-14] MEDS: INSULIN LISPRO 100 UNIT/ML 3ML SQ SCH ×3 (06:17→17:34)
[2019-02-14] MEDS: LEVOTHYROXINE 25 MCG TABLET PO SCH ×2 (06:18→06:30)
[2019-02-14] MEDS: INSULIN GLARGINE 100 UNITS/ML 10 ML VIAL SQ SCH (06:18)
[2019-02-14 06:28] LABS: ALANINE AMINOTRANSFERASE 23 U/L (12-78); ALBUMIN 2.7 g/dL (3.5-5.0); ASPARTATE AMINOTRANSFERASE 16 U/L (10-37); CARBON DIOXIDE 31 mmol/L (21-32); CHLORIDE 104 mmol/L (101-111); CREATINE KINASE, TOTAL 52 U/L (21-232); GLOMERULAR FILTR. RATE CALC 78 mL/min (>60); GLUCOSE,RANDOM 96 mg/dL (70-105); MYOGLOBIN 46 ng/mL (10-92); POTASSIUM 3.4 mmol/L (3.5-5.1); SODIUM SERUM 139 mmol/L (136-145); TOTAL PROTEIN, SERUM 6.2 g/dL (6.0-8.3); TROPONIN I < 0.04 ng/mL (0.00-0.06); UREA NITROGEN, BLOOD 9 mg/dL (7-18)
--- NOTE | 2019-02-14 07:20 | NUR ---
Receiving report on assignments from nightshift nurse Mike Allen RN. robotic weld technician taking patient for Lt Heart Cath.
[2019-02-14] MEDS ORDERED: IOHEXOL-350 50ML VIAL IV ONE (07:21)
[2019-02-14] MEDS ORDERED: LIDOCAINE HCL 2% 20ML ONE (07:22)
[2019-02-14] MEDS ORDERED: IOHEXOL-350 75 ML VIAL IV ONE (07:22)
[2019-02-14] MEDS ORDERED: BIVALIRUDIN 250 MG/VIAL IV ONE (07:22)
[2019-02-14] MEDS ORDERED: NITROGLYCERIN 5 MG/ML 10 ML VIAL IV ONE (07:23)
[2019-02-14] MEDS: GLIPIZIDE XL 10MG TAB PO SCH (08:00)
[2019-02-14] MEDS ORDERED: FENTANYL CITRATE PF 50 MCG/1 ML 2ML VIAL ONE (08:03)
[2019-02-14] MEDS ORDERED: MIDAZOLAM HCL 1 MG/ML 2ML VIAL ONE (08:03)
[2019-02-14] MEDS: ASPIRIN 81MG TAB.CHEW PO SCH (09:00)
[2019-02-14] MEDS: ***HM***(Sacubitril/Valsartan (Entresto 49 mg-51 mg Tablet) 1 EACH PO SCH (09:00)
[2019-02-14] MEDS: ENOXAPARIN SODIUM 40 MG/0.4 ML SYRINGE SQ SCH (09:00)
[2019-02-14] MEDS ORDERED: ASPIRIN 81MG TAB.CHEW ONE (09:46)
[2019-02-14] MEDS ORDERED: CLOPIDOGREL BISULFATE 300 MG TAB ONE (09:46)
[2019-02-14] MEDS ORDERED: SODIUM CHLORIDE 0.9% 1000ML 1,000 ML IV SCH (09:52)
[2019-02-14] MEDS ORDERED: HYDRALAZINE HCL 20 MG/ML VIAL IV PRN (10:00)
--- NOTE | 2019-02-14 10:50 | NUR ---
Provided report to Kunal Calloway RN with [facility] for transfer post Lt Heart Cath.
[2019-02-14] MEDS: FAMOTIDINE/PF 20 MG/2 ML VIAL IV SCH ×2 (11:29→20:30)
[2019-02-14] MEDS: VANCOMYCIN 1.25 GM in SODIUM CHLORIDE 0.9% 250 ML IV SCH ×2 (11:37→20:31)
--- NOTE | 2019-02-14 13:28 | NUR ---
RD NOTIFICATION DX: RIGHT FIRST TOE NECROSIS, GANGRENE. DIET: 75GMCCD/ NPO FOR NOW DUE TO PROCEDURE. LBM: 02/13. NO DIFFICULTY CHEWING OR SWALLOWING. NO EMESIS OR DIARRHEA. NO EDEMA NOTED. PT CLAIMS TO HAVE GOOD APPETITE. PROVIDER COOKS FOR PT AT HOME AND EATS 3 MEALS DAILY. PT IS UNSURE IF PROVIDER KNOWS TO COOK FOR A DIABETIC. RD PROVIDED DM DIET AND NUTRITION EDUCATION. RD ENCOURAGED TO SHARE DM DIET INFORMATION WITH HIS PROVIDER. PT ASKED QUESTIONS, RD ANSWERED AND PT VERBALIZED UNDERSTANDING. EDUCATION MATERIALS PROVIDED. RD RECOMMENDS CONTINUE CURRENT DIET. RD PROVIDED DM2 DIET AND NUTRITION EDUCATION. PT STATED HE IS HUNGRY AND WOULD LIKE HIS TRAY. RECOMMEND ORDER 75GMCCD TRAY POST PROCEDURE. RECOMMEND TARAH BID TO AID WOUND HEALING. RD WILL CONTINUE TO MONITOR AND FOLLOW UP NEEDED. Addendum: 02/14/19 at [address] Amended: Links added.
--- NOTE | 2019-02-14 13:30 | NUR ---
DIET EDUCATION PROVIDER COOKS FOR PT AT HOME AND EATS 3 MEALS DAILY. PT IS UNSURE IF PROVIDER KNOWS TO COOK FOR A DIABETIC. NAVEED PROVIDED DM DIET AND NUTRITION EDUCATION. RD ENCOURAGED TO SHARE DM DIET INFORMATION WITH HIS PROVIDER. PT ASKED QUESTIONS, RD ANSWERED AND PT VERBALIZED UNDERSTANDING. EDUCATION MATERIALS PROVIDED. Addendum: 02/14/19 at [address] Amended: Links added.
[2019-02-14] MEDS: SODIUM CHLORIDE 0.9% 1000ML 1,000 ML IV SCH (16:21)
[2019-02-14] MEDS: NEBIVOLOL HCL 5 MG TABLET PO SCH (17:25)
[2019-02-14] MEDS: ATORVASTATIN CALCIUM 40 MG TABLET PO SCH (20:30)
[2019-02-15] MEDS: MEROPENEM 500 MG VIAL IV SCH ×3 (00:28→16:54)
[2019-02-15 03:10] VITALS: BP 159/82
[2019-02-15] MEDS: LEVOTHYROXINE 25 MCG TABLET PO SCH (05:42)
[2019-02-15] MEDS: INSULIN LISPRO 100 UNIT/ML 3ML SQ SCH (05:59)
[2019-02-15] MEDS: INSULIN GLARGINE 100 UNITS/ML 10 ML VIAL SQ SCH (06:01)
[2019-02-15 07:00] VITALS: BP 140/74
[2019-02-15] MEDS: FAMOTIDINE/PF 20 MG/2 ML VIAL IV SCH (08:46)
[2019-02-15] MEDS: NEBIVOLOL HCL 5 MG TABLET PO SCH (08:47)
[2019-02-15] MEDS: ASPIRIN 81MG TAB.CHEW PO SCH (08:47)
[2019-02-15] MEDS: GLIPIZIDE XL 10MG TAB PO SCH (08:47)
[2019-02-15] MEDS: VANCOMYCIN 1.25 GM in SODIUM CHLORIDE 0.9% 250 ML IV SCH (08:48)
[2019-02-15] MEDS: ENOXAPARIN SODIUM 40 MG/0.4 ML SYRINGE SQ SCH (08:53)
[2019-02-15] MEDS ORDERED: CLOPIDOGREL BISULFATE 75 MG TAB PO SCH (09:00)
[2019-02-15] MEDS: ***HM***(Sacubitril/Valsartan (Entresto 49 mg-51 mg Tablet) 1 EACH PO SCH (09:05)
[2019-02-15 11:00] VITALS: BP 141/75
[2019-02-15] MEDS ORDERED: AMLODIPINE BESYLATE 5 MG TAB PO SCH (13:00)
[2019-02-15 15:00] VITALS: BP 143/70
[2019-02-15] MEDS ORDERED: INSULIN LISPRO 100 UNIT/ML 3ML SQ SCH (17:00)
[2019-02-16] MEDS ORDERED: INSULIN GLARGINE 100 UNITS/ML 10 ML VIAL SQ SCH (07:30)
[2019-02-16] MEDS ORDERED: AMLODIPINE BESYLATE 5 MG TAB PO SCH (09:00)
== END 2019-02-15 18:42 | disposition home or self-care (01) | DRG 247 ==
LOC: EDH 13:27 → EDHIP 17:12 → 3BH 20:55 → 2AH 02-14 10:42
PROVIDERS: ADMIT Internal Medicine; ATTEND Internal Medicine
PROC: B41DY10 Fluoroscopy of Aorta and Bilateral Lower Extremity Arteries using Other Contrast, Laser Intraoperative (ICD-10-PCS; 2019-02-11)
PROC: 027036Z Dilation of Coronary Artery, One Artery with Three Drug-eluting Intraluminal Devices, Percutaneous Approach (ICD-10-PCS; principal; 2019-02-14)
PROC: 4A023N7 Measurement of Cardiac Sampling and Pressure, Left Heart, Percutaneous Approach (ICD-10-PCS; 2019-02-14)
PROC: B2111ZZ Fluoroscopy of Multiple Coronary Arteries using Low Osmolar Contrast (ICD-10-PCS; 2019-02-14)
DX: E11.52 Type 2 diabetes mellitus with diabetic peripheral angiopathy with gangrene (principal); E87.1 Hypo-osmolality and hyponatremia; L03.115 Cellulitis of right lower limb; M86.9 Osteomyelitis, unspecified; I48.20 Chronic atrial fibrillation, unspecified; L03.116 Cellulitis of left lower limb; I96 Gangrene, not elsewhere classified; I50.32 Chronic diastolic (congestive) heart failure; I25.10 Atherosclerotic heart disease of native coronary artery without angina pectoris; I74.5 Embolism and thrombosis of iliac artery; I10 Essential (primary) hypertension; E78.5 Hyperlipidemia, unspecified; E03.9 Hypothyroidism, unspecified; E11.42 Type 2 diabetes mellitus with diabetic polyneuropathy; E87.5 Hyperkalemia; L97.519 Non-pressure chronic ulcer of other part of right foot with unspecified severity; Z82.49 Family history of ischemic heart disease and other diseases of the circulatory system; I11.0 Hypertensive heart disease with heart failure; E11.621 Type 2 diabetes mellitus with foot ulcer; E11.69 Type 2 diabetes mellitus with other specified complication; E78.00 Pure hypercholesterolemia, unspecified; F17.210 Nicotine dependence, cigarettes, uncomplicated; I25.5 Ischemic cardiomyopathy; R53.81 Other malaise; Z79.01 Long term (current) use of anticoagulants; Z79.02 Long term (current) use of antithrombotics/antiplatelets; Z79.4 Long term (current) use of insulin; Z79.899 Other long term (current) drug therapy; Z83.3 Family history of diabetes mellitus; Z90.49 Acquired absence of other specified parts of digestive tract; Z91.19 Patient's noncompliance with other medical treatment and regimen; Z95.810 Presence of automatic (implantable) cardiac defibrillator; Z71.6 Tobacco abuse counseling
CPT/HCPCS: 36200; 36415; 73521; 73552; 73562; 73600; 73630; 75630; 78452; 80048; 80053; 80061; 80076; 80202; 82550; 82948; 83036; 83874; 84145; 84484; 85025; 85027; 85610; 85651; 85730; 86140; 90715; 93005; 93017; 93454; 93925; 96374; 99156; 99157; A9500; C1725; C1769; C1887; C1894; C9600; G0378; J0360; J0583; J1644; J1650; J2185; J2250; J2270; J2785; J3010; J3370; J3490; J7030; Q9967

== ENCOUNTER → 2019-02-20 | Outpatient (CLI) | payer OTHER, MEDICARE ==
[~2019-02-20] MED LIST changes: +ATOR40TA69 PO; -ATOR40TA71 PO; -GABA-529 PO; +GLIP10TA9 PO; +LEVO25TA54 PO; +NEBI10TA PO; -NEBI5TAB8 PO; +TRAM50TA4 PO; -WARF4TAB72 PO
[2019-02-20 14:38] VITALS: BP 156/74
== END | disposition home or self-care (01) ==
LOC: WHH 09:40
PROVIDERS: ATTEND Podiatrist Foot & Ankle Surgery
DX: E11.621 Type 2 diabetes mellitus with foot ulcer (principal); L97.511 Non-pressure chronic ulcer of other part of right foot limited to breakdown of skin; I70.235 Atherosclerosis of native arteries of right leg with ulceration of other part of foot; E11.52 Type 2 diabetes mellitus with diabetic peripheral angiopathy with gangrene; I96 Gangrene, not elsewhere classified; E11.42 Type 2 diabetes mellitus with diabetic polyneuropathy; I12.9 Hypertensive chronic kidney disease with stage 1 through stage 4 chronic kidney disease, or unspecified chronic kidney disease; I50.9 Heart failure, unspecified; I25.10 Atherosclerotic heart disease of native coronary artery without angina pectoris; I48.20 Chronic atrial fibrillation, unspecified; I25.5 Ischemic cardiomyopathy; E78.5 Hyperlipidemia, unspecified; E03.9 Hypothyroidism, unspecified; E78.00 Pure hypercholesterolemia, unspecified; Z79.02 Long term (current) use of antithrombotics/antiplatelets; Z79.01 Long term (current) use of anticoagulants; Z79.4 Long term (current) use of insulin; Z79.899 Other long term (current) drug therapy
CPT/HCPCS: G0463

== ENCOUNTER → 2019-03-06 | Outpatient (CLI) | payer OTHER, MEDICARE ==
[~2019-03-06] MED LIST changes: +LIDOCAINE HCL 2% JELLY 5 ML TP ONE
[2019-03-06 13:53] VITALS: BP 117/57
== END | disposition home or self-care (01) ==
LOC: WHH 10:45
PROVIDERS: ATTEND Podiatrist Foot & Ankle Surgery
DX: E11.621 Type 2 diabetes mellitus with foot ulcer (principal); L97.511 Non-pressure chronic ulcer of other part of right foot limited to breakdown of skin; I70.235 Atherosclerosis of native arteries of right leg with ulceration of other part of foot; E11.52 Type 2 diabetes mellitus with diabetic peripheral angiopathy with gangrene; I96 Gangrene, not elsewhere classified; E11.42 Type 2 diabetes mellitus with diabetic polyneuropathy; I12.9 Hypertensive chronic kidney disease with stage 1 through stage 4 chronic kidney disease, or unspecified chronic kidney disease; I50.9 Heart failure, unspecified; I25.10 Atherosclerotic heart disease of native coronary artery without angina pectoris; I48.20 Chronic atrial fibrillation, unspecified; I25.2 Old myocardial infarction; E78.5 Hyperlipidemia, unspecified; E03.9 Hypothyroidism, unspecified; E78.00 Pure hypercholesterolemia, unspecified; Z79.02 Long term (current) use of antithrombotics/antiplatelets; Z79.01 Long term (current) use of anticoagulants; Z79.4 Long term (current) use of insulin; Z79.899 Other long term (current) drug therapy
CPT/HCPCS: G0463

== ENCOUNTER → 2019-03-20 | Outpatient (CLI) | payer OTHER, MEDICARE ==
[~2019-03-20] MED LIST changes: -LIDOCAINE HCL 2% JELLY 5 ML TP ONE
[2019-03-20 13:29] VITALS: BP 172/88
== END | disposition home or self-care (01) ==
LOC: WHH 10:30
PROVIDERS: ATTEND Podiatrist Foot & Ankle Surgery
DX: E11.621 Type 2 diabetes mellitus with foot ulcer (principal); L97.511 Non-pressure chronic ulcer of other part of right foot limited to breakdown of skin; I70.235 Atherosclerosis of native arteries of right leg with ulceration of other part of foot; E11.52 Type 2 diabetes mellitus with diabetic peripheral angiopathy with gangrene; I96 Gangrene, not elsewhere classified; E11.42 Type 2 diabetes mellitus with diabetic polyneuropathy; I12.9 Hypertensive chronic kidney disease with stage 1 through stage 4 chronic kidney disease, or unspecified chronic kidney disease; I50.9 Heart failure, unspecified; I25.10 Atherosclerotic heart disease of native coronary artery without angina pectoris; I48.20 Chronic atrial fibrillation, unspecified; I25.2 Old myocardial infarction; E03.9 Hypothyroidism, unspecified; E78.00 Pure hypercholesterolemia, unspecified; Z79.02 Long term (current) use of antithrombotics/antiplatelets; Z79.01 Long term (current) use of anticoagulants; Z79.4 Long term (current) use of insulin; Z79.899 Other long term (current) drug therapy
CPT/HCPCS: 82948; G0463

== ENCOUNTER → 2019-05-08 | Outpatient (CLI) | payer OTHER, MEDICARE ==
[2019-05-08 14:14] VITALS: BP 122/68
== END | disposition home or self-care (01) ==
LOC: WHH 10:30
PROVIDERS: ATTEND Podiatrist Foot & Ankle Surgery
DX: E11.621 Type 2 diabetes mellitus with foot ulcer (principal); L97.511 Non-pressure chronic ulcer of other part of right foot limited to breakdown of skin; I70.235 Atherosclerosis of native arteries of right leg with ulceration of other part of foot; E11.52 Type 2 diabetes mellitus with diabetic peripheral angiopathy with gangrene; I96 Gangrene, not elsewhere classified; E11.42 Type 2 diabetes mellitus with diabetic polyneuropathy; I12.9 Hypertensive chronic kidney disease with stage 1 through stage 4 chronic kidney disease, or unspecified chronic kidney disease; I50.9 Heart failure, unspecified; I25.10 Atherosclerotic heart disease of native coronary artery without angina pectoris; I48.20 Chronic atrial fibrillation, unspecified; I25.2 Old myocardial infarction; E03.9 Hypothyroidism, unspecified; E78.00 Pure hypercholesterolemia, unspecified; Z79.02 Long term (current) use of antithrombotics/antiplatelets; Z79.01 Long term (current) use of anticoagulants; Z79.4 Long term (current) use of insulin; Z79.899 Other long term (current) drug therapy
CPT/HCPCS: G0463

== ENCOUNTER → 2019-05-29 | Outpatient (CLI) | payer OTHER, MEDICARE ==
[~2019-05-29] MED LIST changes: +GEL DRESSING 90 GM GEL TP ONE; +LIDOCAINE/PRILOCAINE CREAM 5GM TUBE TP ONE
[2019-05-29 11:24] VITALS: BP 104/62
== END | disposition home or self-care (01) ==
LOC: WHH 10:30
PROVIDERS: ATTEND Podiatrist Foot & Ankle Surgery
DX: T87.81 Dehiscence of amputation stump (principal); E11.621 Type 2 diabetes mellitus with foot ulcer; L97.512 Non-pressure chronic ulcer of other part of right foot with fat layer exposed; I70.235 Atherosclerosis of native arteries of right leg with ulceration of other part of foot; E11.52 Type 2 diabetes mellitus with diabetic peripheral angiopathy with gangrene; I96 Gangrene, not elsewhere classified; E11.42 Type 2 diabetes mellitus with diabetic polyneuropathy; I12.9 Hypertensive chronic kidney disease with stage 1 through stage 4 chronic kidney disease, or unspecified chronic kidney disease; I50.9 Heart failure, unspecified; I25.10 Atherosclerotic heart disease of native coronary artery without angina pectoris; I25.5 Ischemic cardiomyopathy; I48.20 Chronic atrial fibrillation, unspecified; I25.2 Old myocardial infarction; E03.9 Hypothyroidism, unspecified; E78.00 Pure hypercholesterolemia, unspecified; F17.290 Nicotine dependence, other tobacco product, uncomplicated; Z79.02 Long term (current) use of antithrombotics/antiplatelets; Z79.01 Long term (current) use of anticoagulants; Z79.4 Long term (current) use of insulin; Z79.899 Other long term (current) drug therapy; Z95.0 Presence of cardiac pacemaker; Z95.5 Presence of coronary angioplasty implant and graft; Y83.5 Amputation of limb(s) as the cause of abnormal reaction of the patient, or of later complication, without mention of misadventure at the time of the procedure
CPT/HCPCS: 11042; 11045; J3490

== ENCOUNTER → 2019-06-19 | Outpatient (CLI) | payer OTHER, MEDICARE ==
[~2019-06-19] MED LIST changes: -GEL DRESSING 90 GM GEL TP ONE; -LIDOCAINE/PRILOCAINE CREAM 5GM TUBE TP ONE
[2019-06-19 14:48] VITALS: BP 127/66
== END | disposition home or self-care (01) ==
LOC: WHH 10:30
PROVIDERS: ATTEND Podiatrist Foot & Ankle Surgery
DX: T87.89 Other complications of amputation stump (principal); E11.621 Type 2 diabetes mellitus with foot ulcer; L97.512 Non-pressure chronic ulcer of other part of right foot with fat layer exposed; E11.22 Type 2 diabetes mellitus with diabetic chronic kidney disease; I13.0 Hypertensive heart and chronic kidney disease with heart failure and stage 1 through stage 4 chronic kidney disease, or unspecified chronic kidney disease; N18.9 Chronic kidney disease, unspecified; I50.9 Heart failure, unspecified; E11.52 Type 2 diabetes mellitus with diabetic peripheral angiopathy with gangrene; I96 Gangrene, not elsewhere classified; E11.42 Type 2 diabetes mellitus with diabetic polyneuropathy; I25.10 Atherosclerotic heart disease of native coronary artery without angina pectoris; I25.2 Old myocardial infarction; I48.20 Chronic atrial fibrillation, unspecified; I25.5 Ischemic cardiomyopathy; E03.9 Hypothyroidism, unspecified; E78.00 Pure hypercholesterolemia, unspecified; F17.290 Nicotine dependence, other tobacco product, uncomplicated; Z79.01 Long term (current) use of anticoagulants; Z79.02 Long term (current) use of antithrombotics/antiplatelets; Z79.4 Long term (current) use of insulin; Z79.899 Other long term (current) drug therapy; Z95.1 Presence of aortocoronary bypass graft; Z95.0 Presence of cardiac pacemaker; Z95.5 Presence of coronary angioplasty implant and graft; Y83.5 Amputation of limb(s) as the cause of abnormal reaction of the patient, or of later complication, without mention of misadventure at the time of the procedure
CPT/HCPCS: 11042; 11045

== ENCOUNTER 2019-07-10 10:09 | Inpatient (IN) | payer OTHER, MEDICARE ==
[2019-07-10] MEDS ORDERED: INSULIN HUMULIN R 100 UNIT/ML 3ML ONE ×2 (10:23→11:22)
[2019-07-10 10:31] LABS: BASOPHILS % (AUTO) 0.4 % (0.0-5.0); EOSINOPHILS % (AUTO) 18.4 % (0.0-8.0); HEMATOCRIT 48.1 % (42-54); MEAN CORPUSCULAR HEMOGLOBIN 27.3 pg (27.0-33.0); MEAN CORPUSCULAR HGB CONC 29.9 g/dL (32.0-36.0); MEAN CORPUSCULAR VOLUME 91.3 fL (79-99); MONOCYTES % (AUTO) 4.5 % (3.0-13.0); NEUTROPHILS % (AUTO) 67.7 % (40.0-77.0); NUCLEATED RED BLOOD CELLS 0.1 % (0.0-0.19); PLATELET COUNT (AUTO) 154 K/uL (130-400); RED BLOOD CELL COUNT(AUTO) 5.27 MIL/uL (4.50-6.20); RED CELL DISTRIBUTION WIDTH 15.6 % (11.0-15.5); WHITE BLOOD COUNT (AUTO) 22.3 K/uL (4.8-10.8)
[2019-07-10 10:41] LABS: INR 1.53 (0.85-1.15); PARTIAL THROMBOPLASTIN TIME 41.9 SEC (26.3-35.5); PROTHROMBIN TIME 16.3 SEC (9.6-11.6)
[2019-07-10 10:48] LABS: ABG BASE EXCESS -33.4 mmol/L (-2.0-3.0); ABG PCO2 63 mmHg (35-48)
[2019-07-10 10:53] LABS: POTASSIUM 4.1 mmol/L (3.5-5.1)
[2019-07-10 10:54] LABS: BILIRUBIN,TOTAL 1.4 mg/dL (0.2-1.0); TROPONIN I 20.93 ng/mL (0.00-0.06)
[2019-07-10 10:55] LABS: ABG BASE EXCESS -32.3 mmol/L (-2.0-3.0); ABG HCO3 6.6 mmol/L (21.0-28.0); ABG PCO2 68 mmHg (35-48)
[2019-07-10] MEDS ORDERED: NOREPINEPHRINE 4MG/NS 250ML 250 ML IV ONE (10:56)
[2019-07-10] MEDS ORDERED: SODIUM BICARB 50MEQ 50ML VIAL ONE ×2 (11:05→11:42)
[2019-07-10] MEDS ORDERED: POTASSIUM BICARB/CIT AC 25 MEQ TABLET.EFF ONE (11:05)
[2019-07-10] MEDS ORDERED: CEFTRIAXONE SODIUM 1 GM ONE (11:06)
[2019-07-10] MEDS ORDERED: AZITHROMYCIN 500MG+NS 250ML 250 ML IV ONE (11:06)
[2019-07-10 11:10] LABS: APPEARANCE,URINE Cloudy (CLEAR); BILIRUBIN,URINE Negative (NEGATIVE); COLOR,URINE Yellow (YELLOW); GLUCOSE, URINE (UA) >=1000 mg/dL (NEGATIVE); KETONES,URINE Trace mg/dL (NEGATIVE); LEUKOCYTE ESTERASE ,URINE Negative (NEGATIVE); NITRATE,URINE Negative (NEGATIVE); OCCULT BLOOD,URINE Large (NEGATIVE); PROTEIN,URINE POS 2+ mg/dL (NEGATIVE); UROBILINOGEN,URINE 0.2 mg/dL (0.2-1.0)
[2019-07-10 11:16] LABS: ALBUMIN 2.3 g/dL (3.5-5.0); TOTAL PROTEIN, SERUM 5.7 g/dL (6.0-8.3)
[2019-07-10] MEDS ORDERED: SODIUM CHLORIDE 0.9% 100 ML IV ONE (11:22)
[2019-07-10] MEDS ORDERED: ACETAMINOPHEN ELIXIR 650 MG/20.3 ML UDCUP ONE (11:25)
[2019-07-10 11:37] LABS: ABG BASE EXCESS -26.4 mmol/L (-2.0-3.0); ABG OXYGEN SATURATION 97.1 % (95.0-99.0); ABG PCO2 41 mmHg (35-48)
[2019-07-10] MEDS ORDERED: VASOPRESSIN 20 UNITS/NS 100ML IV SCH ×2 (11:45)
[2019-07-10] MEDS ORDERED: EPINEPHRINE 0.1 MG/ML 10 ML SYG ONE (11:46)
[2019-07-10 11:50] LABS: AMORPHOUS SEDIMENT,UR Few /LPF (None Seen); BACTERIA,URINE None Seen /HPF (None Seen); COARSE GRANULAR CASTS,URINE 0-2 /LPF (None Seen); SQUAMOUS EPITHELIAL CELL,UR 0-2 /HPF (0-2); WBC,URINE 0-1 /HPF (0-1)
[2019-07-10] MEDS ORDERED: NOREPINEPHRINE 4MG/NS 250ML 250 ML IV SCH (12:00)
[2019-07-10] MEDS ORDERED: DEXTROSE 5 %-0.45 % NACL 1,000 ML IV PRN (12:00)
[2019-07-10] MEDS ORDERED: SODIUM CHLORIDE 0.9% 1000ML 1,000 ML IV SCH ×3 (12:00)
[2019-07-10] MEDS ORDERED: ONDANSETRON HCL 4 MG/2 ML VIAL IVP PRN (12:00)
[2019-07-10] MEDS ORDERED: POTASSIUM CHLORIDE 10MEQ/100ML 100 ML IV PRN (12:00)
[2019-07-10] MEDS ORDERED: ATROPINE SULFATE 0.1 MG/ML 10 ML SYG IVP ONE (12:00)
[2019-07-10] MEDS ORDERED: EPINEPHRINE 5 MG in SODIUM CHLORIDE 0.9% 250 ML IV SCH (12:00)
[2019-07-10] MEDS ORDERED: EPINEPHRINE 0.1 MG/ML 10 ML SYG IVP ONE ×2 (12:00→12:14)
[2019-07-10] MEDS ORDERED: CALCIUM CHLORIDE 100 MG/ML 10 ML SYG IVP ONE (12:14)
[2019-07-10] MEDS ORDERED: SODIUM BICARB 8.4% 50ML SYRINGE IVP ONE (12:14)
[2019-07-10] MEDS ORDERED: DEXTROSE 50%-WATER 50 ML DISP.SYRIN IV PRN (12:15)
[2019-07-10] MEDS ORDERED: GLUCAGON 1MG KIT 1 MG ML IM PRN (12:15)
--- NOTE | 2019-07-10 12:52 | NUR ---
CODE BLUE ROSA ISELA contacted patient's son, Larry Graf, [phone] and asked son to come to hospital. Son stated that he was in [place] and would be headed back in a bit. Son informed SW that patient's daughter, Cecelia Graf, was headed to hospital from [facility] and would be at hospital in less time. Son also provided phone number to patient's provider, Cailin Aggarwal, [phone] since she was the closest person to reach hospital. SW contacted provider, Cailin Aggarwal, and she stated that she would be headed to hospital once she secured patient's home. Patient's daughter, Cecelia Graf, came to ER and Dr. Koenig provided update to daughter on patient's condition. Dr. Koenig also provided update to patient's son, Larry Jimenez, after daughter asked MD to call patient's son. Envelope Adjuster contacted by Pain Management Specialist. Family decided to sign Do Not Resuscitate after receiving updates from Dr. Koenig and Dr. Zazueta after patient coded X 3. Dr. Zazueta notified patient's daughter later that patient had . SW provided patient's daughter with copy of local homes. Daughter stated that she would contact patient's son before making decision.
[2019-07-10 13:05] LABS: BAND NEUTROPHILS % (MANUAL) 39 % (0-2); BASOPHILS % (MANUAL) 1 % (0-2); LYMPHOCYTES % (MANUAL) 1 % (22-44); MAN.DIFF COMMENT-IMPRESSION MANUAL DIFFERENTIAL; MONOCYTES % (MANUAL) 7 % (2-9); SEGMENTED NEUTROPHILS % 52 % (40-70)
[2019-07-10 13:06] LABS: PLATELET MORPHOLOGY COMMENT ADEQUATE
[2019-07-10] MEDS ORDERED: INSULIN HUMULIN R 100 UNIT/ML 3ML SQ SCH (16:30)
== END 2019-07-10 12:15 | disposition expired | DRG 871 ==
LOC: EDH 10:09 → EDHIP 11:32
PROVIDERS: ADMIT Internal Medicine; ATTEND Internal Medicine
PROC: 0BH17EZ Insertion of Endotracheal Airway into Trachea, Via Natural or Artificial Opening (ICD-10-PCS; principal; 2019-07-10)
PROC: 5A1935Z Respiratory Ventilation, Less than 24 Consecutive Hours (ICD-10-PCS; 2019-07-10)
PROC: 05HY33Z Insertion of Infusion Device into Upper Vein, Percutaneous Approach (ICD-10-PCS; 2019-07-10)
PROC: 5A12012 Performance of Cardiac Output, Single, Manual (ICD-10-PCS; 2019-07-10)
PROC: B54MZZA Ultrasonography of Right Upper Extremity Veins, Guidance (ICD-10-PCS; 2019-07-10)
DX: A41.9 Sepsis, unspecified organism (principal); E11.10 Type 2 diabetes mellitus with ketoacidosis without coma; J15.9 Unspecified bacterial pneumonia; I21.4 Non-ST elevation (NSTEMI) myocardial infarction; J96.01 Acute respiratory failure with hypoxia; K72.00 Acute and subacute hepatic failure without coma; R65.21 Severe sepsis with septic shock; N17.0 Acute kidney failure with tubular necrosis; M62.82 Rhabdomyolysis; I46.9 Cardiac arrest, cause unspecified; N18.9 Chronic kidney disease, unspecified; E11.22 Type 2 diabetes mellitus with diabetic chronic kidney disease; F17.200 Nicotine dependence, unspecified, uncomplicated; Z66 Do not resuscitate; Z82.49 Family history of ischemic heart disease and other diseases of the circulatory system; Z83.3 Family history of diabetes mellitus; I48.91 Unspecified atrial fibrillation; E11.51 Type 2 diabetes mellitus with diabetic peripheral angiopathy without gangrene; I25.5 Ischemic cardiomyopathy; E78.5 Hyperlipidemia, unspecified; I25.10 Atherosclerotic heart disease of native coronary artery without angina pectoris
CPT/HCPCS: 31500; 36415; 36600; 71045; 80053; 81001; 82010; 82435; 82550; 82803; 82947; 82948; 83605; 83874; 84132; 84145; 84295; 84484; 85018; 85025; 85610; 85730; 87040; 87077; 87088; 87186; 92950; 93005; 94002; 99291; 99292; G0378; J0171; J0456; J0461; J0696; J1815; J3490; J7030